=== PATIENT | female | born 1990 | race Hispanic/Latino ===

== ENCOUNTER 2016-09-07 20:47 | Emergency (ER) | payer MEDICAID ==
[2016-09-07 21:28] VITALS: O2SAT 98
[2016-09-07] MEDS ORDERED: Oxycodone/Acetaminophen 5/325 mg Tab PO STA (22:07)
--- NOTE | 2016-09-07 22:16 | C.PDOC ---
History Of Present Illness 26 year old patient presents to the ED complaining of dental pain that began today. Patient took pain medications which gave her no relief. Patient has a history of a root canal in this area. Patient reports "the air makes it worse." Patient has a migraine secondary to the dental pain. She usually takes Imitrex, but ran out of it. Patient denies fever, vomiting, or neck pain. Time Seen by Provider: 09/07/16 21:41 Chief Complaint (Nursing): Dental Pain History Per: Patient History/Exam Limitations: no limitations Onset/Duration Of Symptoms: Hrs (today) Current Symptoms Are (Timing): Still Present Severity: Mild Pain Scale Rating Of: 3 Quality: Positive for: "Pain" Recent travel outside of the [place]: No Past Medical History Reviewed: Historical Data, Nursing Documentation, Vital Signs Vital Signs: Last Vital Signs Temp 97.8 F 09/07/16 22:55 Pulse 80 09/07/16 22:55 Resp 18 09/07/16 22:55 BP 128/82 09/07/16 22:55 Pulse Ox 98 09/07/16 22:55 - Medical History PMH: Asthma, Back Problems Family History: States: Unknown Family Hx - Social History Hx Tobacco Use: Yes Hx Alcohol Use: Yes Hx Substance Use: No - Immunization History Hx Tetanus Toxoid Vaccination: No Hx Influenza Vaccination: No Hx Pneumococcal Vaccination: No Review Of Systems Except As Marked, All Systems Reviewed And Found Negative. Constitutional: Positive for: Other (dental pain). Negative for: Fever Gastrointestinal: Negative for: Vomiting Musculoskeletal: Negative for: Neck Pain Physical Exam - Physical Exam Appears: Non-toxic, No Acute Distress Skin: Warm, Dry Head: Atraumatic, Normacephalic Eye(s): bilateral: Normal Inspection, EOMI, Abnormal Pupil Ear(s): Bilateral: Normal Nose: Normal Oral Mucosa: Moist Tongue: Normal Appearing Lips: Normal Appearing Teeth: Other (tenderness to right mandibular molar) Gingiva: Normal Appearing Throat: Normal, No Erythema, No Exudate Neck: Normal ROM, Supple Chest: Symmetrical Cardiovascular: Rhythm Regular Respiratory: No Accessory Muscle Use Back: Normal Inspection Extremity: Normal ROM Neurological/Psych: Oriented x3, Normal Speech, Normal Cognition Gait: Steady ED Course And Treatment O2 Sat by Pulse Oximetry: 98 (RA) Pulse Ox Interpretation: Normal Progress Note: Plan: -Amoxicillin, Imitrex, Lidocaine 2%, Percocet. Patient is discharged and instructed to follow up with dentist in 1-2 days or returns if symptoms worsen. Disposition - Disposition Referrals: [facility] [Outside] Disposition: HOME/ ROUTINE Disposition Time: 22:13 Additional Instructions: Follow up with your dentist in 2-5 days for further evaluation. Take medications as prescribed. Return to the emergency department at any time if symptoms persist or worsen. Prescriptions: Amoxicillin 875 mg PO BID #14 tablet SUMAtriptan [Imitrex] 1 tab PO Q4 #12 tab oxyCODONE/Acetaminophen [Percocet 5/325 mg Tab] 1 tab PO QID PRN #14 tab PRN Reason: Pain Instructions: Toothache (ED) Forms: Accompanied To ED By:, Work Excuse - Clinical Impression Clinical Impression: Pain, dental, Headache - PA / HAIR CUTTER / Resident Statement MD/DO has reviewed & agrees with the documentation as recorded. - Scribe Statement The provider has reviewed the documentation as recorded by the Scribe Patience Walter All medical record entries made by the Scribe were at my direction and personally dictated by me. I have reviewed the chart and agree that the record accurately reflects my personal performance of the history, physical exam, medical decision making, and the department course for this patient. I have also personally directed, reviewed, and agree with the discharge instructions and disposition.
[2016-09-07] MEDS ORDERED: Oxycodone/Acetaminophen 5/325 mg Tab ONE (22:24)
[2016-09-07 22:56] VITALS: BP 128/82; PULSE 80; RESP 18; TEMP 97.8
== END 2016-09-07 22:55 | disposition home or self-care (01) ==
LOC: C.ER 20:47
DX: K08.89 Other specified disorders of teeth and supporting structures (principal); R51 Headache

== ENCOUNTER 2016-11-16 21:12 | Inpatient (IN) | payer MEDICAID ==
--- NOTE | 2016-11-16 21:55 | C.PDOC ---
History Of Present Illness Pt is here requesting detox from Heroin. Time Seen by Provider: 11/16/16 21:33 Chief Complaint (Nursing): Substance Abuse History Per: Patient Onset/Duration Of Symptoms: Days Current Symptoms Are (Timing): Still Present Suicide/Self Injury Attempted (Context): None Modifying Factor(s): Narcotics Severity: Moderate Associated Symptoms: denies: Suicidal Thoughts, Suicidal Plan Additional History Per: Prior Records Past Medical History Reviewed: Historical Data, Nursing Documentation, Vital Signs Vital Signs: Last Vital Signs Temp 98.0 F 11/16/16 21:17 Pulse 91 H 11/16/16 21:17 Resp 20 11/16/16 21:17 BP 126/86 11/16/16 21:17 Pulse Ox 98 11/16/16 21:55 - Medical History PMH: Asthma, Back Problems Family History: States: Unknown Family Hx - Social History Hx Tobacco Use: Yes Hx Alcohol Use: No Hx Substance Use: Yes (Snorts Heroin) - Immunization History Hx Tetanus Toxoid Vaccination: Yes Hx Influenza Vaccination: No Hx Pneumococcal Vaccination: No Review Of Systems Except As Marked, All Systems Reviewed And Found Negative. Constitutional: Negative for: Fever Cardiovascular: Negative for: Chest Pain Respiratory: Negative for: Shortness of Breath Genitourinary: Negative for: Dysuria Musculoskeletal: Negative for: Neck Pain Skin: Negative for: Rash Neurological: Negative for: Weakness, Numbness, Seizures, Altered Mental Status Physical Exam - Physical Exam Appears: Non-toxic, No Acute Distress Skin: Normal Color, Warm, Dry, No Rash Head: Atraumatic, Normacephalic Eye(s): bilateral: PERRL, EOMI Neck: Normal ROM, Supple Cardiovascular: Rhythm Regular Respiratory: Normal Breath Sounds, No Accessory Muscle Use Gastrointestinal/Abdominal: Soft, No Tenderness Back: No CVA Tenderness Extremity: Normal ROM, No Deformity Neurological/Psych: Oriented x3, Normal Motor, Normal Sensation ED Course And Treatment - Laboratory Results Result Diagrams: 11/16/16 22:08 11/16/16 22:08 Lab Interpretation: No Acute Changes Urine POC: Negative O2 Sat by Pulse Oximetry: 98 Pulse Ox Interpretation: Normal Progress Note: Pt is medically stable for detox admission. Disposition Counseled Patient/Family Regarding: Studies Performed, Diagnosis - Disposition Disposition: HOSPITALIZED Disposition Time: 00:55 Condition: STABLE - Clinical Impression Clinical Impression: Opioid use disorder, severe, dependence Decision To Admit - Pt Status Changed To: Hospital Disposition Of: Inpatient - Admit Certification Admit to Inpatient:: After my assessment, the patient will require hospitalization for at least two midnights. This is because of the severity of symptoms shown, intensity of services needed, and/or the medical risk in this patient being treated as an outpatient. - InPatient: Physician Admission Certification: I certify that this patient requires 2 or more midnights of care for the following reason:: Detox. - . Bed Request Type: Detox Admitting Physician: Femi Pedraza Patient Diagnosis: Opioid use disorder, severe, dependence
[2016-11-16 22:12] LABS: BASO % 0.3 % (0.0-2.0); EOS # 0.2 K/uL (0.0-0.7); EOS % 1.9 % (0.0-4.0); HEMATOCRIT 41.2 % (34.0-47.0); LYMPH # 2.3 K/uL (1.0-4.3); LYMPH % 28.5 % (20.0-40.0); MEAN CORPUSCULAR HEMOGLOBIN 28.4 pg (27.0-31.0); MEAN CORPUSCULAR HGB CONC 33.5 g/dL (33.0-37.0); MEAN PLATELET VOLUME 8.2 fL (7.2-11.7); MONO # 0.6 K/uL (0.0-0.8); MONO % 7.7 % (0.0-10.0); NRBC % 0.1 % (0.0-2.0); RED CELL DISTRIBUTION WIDTH 13.1 % (11.5-14.5)
[2016-11-16 22:21] LABS: CHLORIDE 99 mmol/L (98-107); POTASSIUM 3.9 mmol/L (3.6-5.2); RBC URINE 3 /hpf (0-3); SODIUM 138 mmol/L (132-148); URINE BACTERIA OCC (<OCC); URINE BILIRUBIN NEGATIVE (NEGATIVE); URINE BLOOD NEGATIVE (NEGATIVE); URINE COLOR Yellow (YELLOW); URINE GLUCOSE (UA) NORMAL (Normal); URINE KETONE NEGATIVE (NEGATIVE); URINE LEUKOCYTE ESTERASE 1+ Leu/uL (Negative); URINE PROTEIN NEGATIVE (NEGATIVE); URINE UROBILINOGEN NORMAL mg/dL (0.2-1.0); WBC URINE 10 /hpf (0-5)
[2016-11-16 22:23] LABS: ALB/GLOB RATIO 1.4 (1.0-2.1); ALKALINE PHOSPHATASE 57 U/L (38-126); AST/SGOT 21 U/L (14-36); BILIRUBIN,TOTAL 0.5 mg/dL (0.2-1.3); BLOOD UREA NITROGEN 10 mg/dL (7-17); CARBON DIOXIDE 29 mmol/L (22-30); GFR AFRICAN-AMERICAN > 60; TOTAL PROTEIN 7.1 g/dL (6.3-8.3)
[2016-11-16 22:24] LABS: ALCOHOL SERUM < 10 mg/dl (0-10); ALT/SGPT 21 U/L (9-52); CALCIUM 8.6 mg/dl (8.6-10.4); GLUCOSE,RANDOM 99 mg/dL (65-105)
[2016-11-17] MEDS ORDERED: Aluminum Hydroxide/Magnesium Hydroxide Susp (30 mL) PO PRN (10:33)
[2016-11-17 12:33] LABS: RBC URINE 1 /hpf (0-3); URINE BILIRUBIN NEGATIVE (NEGATIVE); URINE BLOOD NEGATIVE (NEGATIVE); URINE COLOR Straw (YELLOW); URINE GLUCOSE (UA) NORMAL (Normal); URINE KETONE NEGATIVE (NEGATIVE); URINE LEUKOCYTE ESTERASE NEG Leu/uL (Negative); URINE PROTEIN NEGATIVE (NEGATIVE); URINE UROBILINOGEN NORMAL mg/dL (0.2-1.0); WBC URINE < 1 /hpf (0-5)
--- NOTE | 2016-11-17 15:02 | PCM.PSYCH ---
Initial Psychiatric Evaluation - Initial Psychiatric Evaluation Type of Admission: Voluntary Legal Status: Capacity Chief Complaint (in patient's own words): "I don't feel good." History of Present Illness and Precipitating Events: The patient is a 26yo female who lives in [place] and works at [employer]. She is and has a 6 yo son. She states that shes been snorting 10-25 bags of heroin for the past year. She states that she last used heroin the night before she came here. She says that her longest sobriety was 2 days long but relapsed because she wanted to get high. She says she has been to detox before in [facility] for 2 days but left because she didnt like the facility or her care there. She denies alcohol use but smokes 10 cigarettes a day since she was 13yo. She says that her plan is to stay clean and go back to work. She denies any legal issues. She states that she slept the night but is cold and cant stay still. She complains of feeling jittery because she wants to use and is experiencing anxiety, nausea, vomiting, and body aches. She denies H/I, S/I, or hallucinations. Past medical history: denies Past psych history: denies Family psych history: denies Family substance abuse: denies Current Medications: Active Medications Generic Name Dose Route Start Last Admin Trade Name Freq PRN Reason Stop Dose Admin Al Hydrox/Mg Hydrox/Simethicone 30 ml 11/17/16 10:33 Maalox 30 Ml PO TID PRN Indigestion / Heartburn Clonidine HCl 0.1 mg 11/17/16 03:23 11/17/16 08:05 Catapres PO 0.1 mg Q6 PRN Administration Opiate Withdrawal Hydroxyzine HCl 50 mg 11/17/16 10:38 Atarax PO Q6H PRN Anxiety Ibuprofen 600 mg 11/17/16 10:37 Motrin Tab PO Q6H PRN Pain, moderate (4-7) Loperamide HCl 2 mg 11/17/16 10:33 Imodium PO Q8 PRN Diarrhea Methadone HCl 15 mg 11/18/16 10:00 Methadone PO 11/21/16 09:59 Q24H ROC Taper Ondansetron HCl 4 mg 11/17/16 10:33 Zofran Tab PO Q8 PRN Nausea/Vomiting Trazodone HCl 100 mg 11/17/16 22:00 Desyrel PO HS PRN Insomnia Past Psychiatric History - Past Psychiatric History Previous Treatment History: None Pertinent Medical Hx (Current Medical&Sleep Prob, Allergies): Allergies Allergy/AdvReac Type Severity Reaction Status Date / Time apple Allergy Severe RASH Verified 11/16/16 21:19 peanut Allergy RASH Verified 11/16/16 21:19 pear Allergy RASH Verified 11/16/16 21:19 walnut Allergy RASH Verified 11/16/16 21:19 ibuprofen AdvReac DIARRHEA Verified 11/16/16 21:19 cherries Allergy RASH Uncoded 05/17/16 20:39 strawberries Allergy RASH Uncoded 05/17/16 20:39 No Known Home Med 11/16/16 Review of Systems - Psychiatric Psychiatric: Abnormal Sleep Pattern, Anxiety. absent: Hallucinations, Homicidal Ideation, Suicidal Ideation Mental Status Examination - Personal Presentation Personal Presentation: Looks stated age - Affect Affect: Constricted - Motor Activity Motor Activity: Calm - Reliability in Providing Information Reliability in Providing Information: Fair - Speech Speech: Organized - Mood Mood: Depressed - Formal Thought Process Formal Thought Process: No Impairment - Obsessions/Compulsions Obsessions: No Compulsions: No - Cognitive Functions Orientation: Person, Place, Situation, Time Sensorium: Drowsy Attention/Concentration: Easily distracted Estimate of Intelligence: Average Judgement: Intact, as evidence by: Insight regarding need for hospitalization Memory: Recent intact, as evidence by: Ability to recall events of the day, Remote intact, as evidenced by: Abilit to recall sig. life events - Risk Risk: Withdrawal, Diminished functioning - Strength & Assets Inventory Strength & Assets Inventory: Employment history, Cooperative - Limitations Limitations: Other DSM 5 DX - DSM 5 DSM 5 Diagnosis: Opioid Use Disorder-severe Opioid Withdrawal Cannabis use d/o - Recommended/Plan of Treatment Treatment Recommendations and Plan of Treatment: Opioid Use Disorder: Support and psychoeducation, Attend groups and activities daily [place] for abstinence CBT for relapse prevention Opioid Withdrawal Disorder: Methadone detox As needed meds Psychoed and support Tobacco Use Disorder: Nicotine patch [place] for abstinence Cannabis: [place] for abstinence 33 min Projected ELOS: 4 days Prognosis: good with treatment Discharge Plan and Discharge Criteria: No wdw sxs Refer to IOP - Smoking Cessation Smoking Cessation Initiated: Yes
--- NOTE | 2016-11-18 14:21 | PCM.PYCHPN ---
Psychiatric Progress Note - Psychiatric Progress Note Patient seen today, length of contact: 16min Patient Chief Complaint: "I feel weak and tired." Problems Identified/Issues Discussed: The pt is seen, chart reviewed, case discussed with staff. The patient states that she is feeling weak and tired and couldnt sleep last night due to her anxiety. She also states that she woke up "antsy" but the atarax she was given helped with her symptoms. She denies S/I, H/I, or hallucinations and states that she would like to go to an outpatient program so that she can still go to work. The pt is compliant with medications and reports no side-effects. Symptoms are improving but needs more time to stabilize. After care discussed, support and psychoeducation given. Medication Change: Yes Medical Record Reviewed: Yes Mental Status Examination - Cognitive Function Orientation: Person, Place, Situation, Time Memory: Intact Attention: WNL Concentration: WNL Association: WN Fund of Knowledge: WNL - Mood Mood: Depressed - Affect Affect: Constricted - Speech Speech: Soft - Formal Thought Process Formal Thought Process: No Impairment - Suicidal Ideation Suicidal Ideation: No - Homicidal Ideation Homicidal Ideation: No Goal/Treatment Plan - Goal/Treatment Plan Need for Continued Stay: Discharge may exacerbated symptoms, Severe functional impairment Progress Toward Problem(s) and Goals/Treatment Plan: Opioid Use Disorder: Support and psychoeducation, Attend groups and activities daily [place] for abstinence CBT for relapse prevention Opioid Withdrawal Disorder: Methadone detox As needed meds Psychoed and support Tobacco Use Disorder: Nicotine patch [place] for abstinence Cannabis: [place] for abstinence Estimated Date of D/C: 11/20/16
[2016-11-19 06:10] VITALS: RESP 18; TEMP 98.2
[2016-11-19 09:47] VITALS: BP 114/83; PULSE 100; O2SAT 98
--- NOTE | 2016-11-19 10:00 | PCM.PYCHDC ---
Mental Status Examination - Mental Status Examination Orientation: Person, Place, Situation, Time Memory: Intact Mood: Depressed, Anxious Affect: Flat Speech: Soft Attention: WNL Concentration: WNL Association: WNL Fund of Knowledge: WNL Formal Thought Process: No Impairment Suicidal Ideation: No Current Homicidal Ideation?: No Discharge Summary - Discharge Note Reason for Hospitalization: Opioid Use Disorder Anxiety Disorder Consultations:: List each consultation separately and include: 1. Reason for request. 2. Findings. 3. Follow-up Summary of Hospital Course include:: 1. Description of specific treatment plan utilized for patients during their course of treatmen. 2. Summarize the time- course for resolution of acute symptoms and/or regressed behaviors. 3. Describe issues identified and worked on during hospitalization. 4. Describe medication utilized. 5. Describe medical problems identified and treated. 6. Reassessment of suicide risk Summary of Hospital Course: On admission: The patient is a 26yo female who lives in [place] and works at [employer]. She is and has a 6 yo son. She states that shes been snorting 10-25 bags of heroin for the past year. She states that she last used heroin the night before she came here. She says that her longest sobriety was 2 days long but relapsed because she wanted to get high. She says she has been to detox before in [facility] for 2 days but left because she didnt like the facility or her care there. She denies alcohol use but smokes 10 cigarettes a day since she was 13yo. She says that her plan is to stay clean and go back to work. She denies any legal issues. She states that she slept the night but is cold and cant stay still. She complains of feeling jittery because she wants to use and is experiencing anxiety, nausea, vomiting, and body aches. She denies H/I, S/I, or hallucinations. Past medical history: denies Past psych history: denies Family psych history: denies Family substance abuse: denies Hospital summary: The pt was admitted and started on treatment with psychotherapy, support, psychoeducation and medications. PA and CBT used. The pt attended some groups and activities, as well as milieu therapy. All the risks and benefits of medications are discussed and the patient understood and agreed. After care discussed with the patient. Patient was isolated, didn't socialize with other patients much. Patient requested to leave early despite counseling to complete detox. She is given 5 mg instead of 10 mg today and risks, incl. relapse, OD or , discussed. - Final Diagnosis (DSM 5) Condition upon Discharge: IMPROVED DSM 5: Opioid Use Disorder-severe Opioid Withdrawal Cannabis use d/o Disposition: HOME/ ROUTINE Follow-up Treatment Plan: Continue below medications after discharge. Follow after care plan as discussed at [facility] IOP Use relapse prevention skills Return to ER or call 911 if suicidal, homicidal or symptoms relapse. Stay away from stress, alcohol and drugs. See primary doctor once a year. Prescriptions/Medication Reconciliation: Gabapentin [Neurontin] 300 mg PO BID #60 cap QUEtiapine [Seroquel] 100 mg PO HS #30 tab - Smoking Cessation Smoking Cessation Medication prescribed: No - Antipsychotic Medications Pt discharged on 2 or more routine antipsychotic medications: No
== END 2016-11-19 10:45 | disposition home or self-care (01) | DRG 745 ==
LOC: C.ER 21:12 → C.7D 11-17 00:55
PROC: HZ2ZZZZ Detoxification Services for Substance Abuse Treatment (ICD-10-PCS; principal; 2016-11-17)
PROC: HZ32ZZZ Individual Counseling for Substance Abuse Treatment, Cognitive-Behavioral (ICD-10-PCS; 2016-11-17)
PROC: HZ46ZZZ Group Counseling for Substance Abuse Treatment, Psychoeducation (ICD-10-PCS; 2016-11-17)
PROC: HZ42ZZZ Group Counseling for Substance Abuse Treatment, Cognitive-Behavioral (ICD-10-PCS; 2016-11-17)
PROC: HZ36ZZZ Individual Counseling for Substance Abuse Treatment, Psychoeducation (ICD-10-PCS; 2016-11-17)
PROC: HZ59ZZZ Individual Psychotherapy for Substance Abuse Treatment, Supportive (ICD-10-PCS; 2016-11-17)
DX: F11.23 Opioid dependence with withdrawal (principal); F12.90 Cannabis use, unspecified, uncomplicated; F17.210 Nicotine dependence, cigarettes, uncomplicated; F41.9 Anxiety disorder, unspecified; J45.909 Unspecified asthma, uncomplicated; G47.00 Insomnia, unspecified

== ENCOUNTER 2017-03-26 09:50 | Emergency (ER) | payer SELFPAY ==
[2017-03-26 10:04] VITALS: RESP 17; TEMP 98.3
[2017-03-26] MEDS ORDERED: Sodium Chloride 0.9% 1,000 ML IV ONE (10:34)
[2017-03-26] MEDS ORDERED: Sodium Chloride 0.9% 1,000 ML ONE (10:49)
--- NOTE | 2017-03-26 11:03 | C.PDOC ---
History Of Present Illness 27 y/o female, with PMHx of heroin and cocaine abuse, presents to ED for evaluation of chills, bodyaches, and tremors. Patient reports using heroin and cocaine intranasally, last use was 10 days ago. Pt denies vomiting, or any other physical complaints at this time. Time Seen by Provider: 03/26/17 10:15 Chief Complaint (Nursing): Substance Abuse History Per: Patient History/Exam Limitations: no limitations Onset/Duration Of Symptoms: Days, Gradual Current Symptoms Are (Timing): Still Present Suicide/Self Injury Attempted (Context): None Modifying Factor(s): Cocaine Associated Symptoms: denies: Suicidal Thoughts, Suicidal Plan Involuntary Hold By: None Recent travel outside of the [place]: No Additional History Per: Patient Past Medical History Reviewed: Historical Data, Nursing Documentation, Vital Signs Vital Signs: Last Vital Signs Temp 98.3 F 03/26/17 10:00 Pulse 94 H 03/26/17 10:00 Resp 17 03/26/17 10:00 BP 93/85 L 03/26/17 10:00 Pulse Ox 100 03/26/17 12:35 - Medical History PMH: Asthma, Back Problems, Depression - [facility] Procedures DETOXIFICATION SERVICES FOR SUBSTANCE ABUSE TREATMENT (11/17/16) GROUP GUEST HISTORY CLERK FOR SUBSTANCE ABUSE TREATMENT, PSYCHOEDUCATION (11/17/16) GROUP GUEST HISTORY CLERK FOR SUBSTANCE ABUSE, COGNITIVE BEHAVIORAL (11/17/16) INDIV GUEST HISTORY CLERK FOR SUBSTANCE ABUSE TREATMENT, PSYCHOEDUCATION (11/17/16) INDIV GUEST HISTORY CLERK FOR SUBSTANCE ABUSE, COGNITIVE BEHAVIORAL (11/17/16) INDIV PSYCHOTHERAPY FOR SUBSTANCE ABUSE TREATMENT, SUPPORT (11/17/16) Family History: States: Unknown Family Hx - Social History Hx Tobacco Use: Yes Hx Alcohol Use: No Hx Substance Use: Yes (10 days ago) - Immunization History Hx Tetanus Toxoid Vaccination: Yes Hx Influenza Vaccination: No Hx Pneumococcal Vaccination: No Review Of Systems Except As Marked, All Systems Reviewed And Found Negative. Constitutional: Positive for: Chills, Other (bodyaches, tremors) Cardiovascular: Negative for: Chest Pain, Palpitations Respiratory: Negative for: Cough, Shortness of Breath Gastrointestinal: Negative for: Nausea, Vomiting, Abdominal Pain Neurological: Negative for: Headache, Dizziness Psych: Positive for: Withdrawal. Negative for: Suicidal ideation Physical Exam - Physical Exam Appears: Non-toxic, No Acute Distress Skin: Normal Color, Warm, Dry Head: Atraumatic, Normacephalic Eye(s): bilateral: Normal Inspection Nose: Normal Oral Mucosa: Moist Neck: Normal ROM, Supple Chest: Symmetrical Cardiovascular: Rhythm Regular, No Murmur Respiratory: Normal Breath Sounds, No Rales, No Rhonchi, No Wheezing Gastrointestinal/Abdominal: Soft, No Tenderness Back: No CVA Tenderness Extremity: Normal ROM Neurological/Psych: Oriented x3, Normal Speech ED Course And Treatment - Laboratory Results Result Diagrams: 03/26/17 11:12 03/26/17 11:12 O2 Sat by Pulse Oximetry: 100 (on RA) Pulse Ox Interpretation: Normal Progress Note: Blood work, UA ordered and reviewed. Patient was given IV fluids , Zofran IVP, and Tylenol PO. Patient evaluated by crisis department, and does not require admission. Patient was referred to outpatient rehab facility. Disposition - Disposition Disposition: HOME/ ROUTINE Disposition Time: 12:18 Condition: STABLE Additional Instructions: follow up with rehab facility call to make an appointment return to ER if symptoms worsens or progress Instructions: Opioid Withdrawal (ED) Forms: General Discharge Instructions, [facility] (Mauritian) Print Language: COMORAN - Clinical Impression Clinical Impression: Drug abuse, Opioid use disorder, severe, dependence - Scribe Statement The provider has reviewed the documentation as recorded by the Scribbri Walter All medical record entries made by the Scribe were at my direction and personally dictated by me. I have reviewed the chart and agree that the record accurately reflects my personal performance of the history, physical exam, medical decision making, and the department course for this patient. I have also personally directed, reviewed, and agree with the discharge instructions and disposition.
[2017-03-26 11:15] LABS: EOS # 0.2 K/uL (0.0-0.7); EOS % 1.1 % (0.0-4.0); HEMATOCRIT 46.7 % (34.0-47.0); LYMPH # 2.8 K/uL (1.0-4.3); LYMPH % 21.3 % (20.0-40.0); MEAN CELL VOLUME 85.1 fL (81.0-99.0); MEAN CORPUSCULAR HEMOGLOBIN 28.8 pg (27.0-31.0); MEAN CORPUSCULAR HGB CONC 33.8 g/dL (33.0-37.0); MONO # 0.8 K/uL (0.0-0.8); MONO % 5.7 % (0.0-10.0); NRBC % 0.1 % (0.0-2.0); RED CELL DISTRIBUTION WIDTH 12.7 % (11.5-14.5)
[2017-03-26 11:19] LABS: WHITE BLOOD COUNT 13.3 K/uL (4.8-10.8)
[2017-03-26 11:22] LABS: CHLORIDE 100 mmol/L (98-107)
[2017-03-26 11:23] LABS: POTASSIUM 3.8 mmol/L (3.6-5.2); SODIUM 137 mmol/L (132-148)
[2017-03-26 11:26] LABS: ALB/GLOB RATIO 1.2 (1.0-2.1); ALKALINE PHOSPHATASE 58 U/L (38-126); ALT/SGPT 33 U/L (9-52); AST/SGOT 18 U/L (14-36); BILIRUBIN,TOTAL 0.6 mg/dL (0.2-1.3); BLOOD UREA NITROGEN 8 mg/dL (7-17); CARBON DIOXIDE 25 mmol/L (22-30); GFR AFRICAN-AMERICAN > 60; GLUCOSE,RANDOM 98 mg/dL (65-105); TOTAL PROTEIN 7.9 g/dL (6.3-8.3)
[2017-03-26 11:27] LABS: ALCOHOL SERUM < 10 mg/dl (0-10)
[2017-03-26 11:28] LABS: RBC URINE 8 /hpf (0-3); URINE BACTERIA RARE (<OCC); URINE BILIRUBIN NEGATIVE (NEGATIVE); URINE BLOOD NEGATIVE (NEGATIVE); URINE COLOR Yellow (YELLOW); URINE GLUCOSE (UA) NORMAL (Normal); URINE KETONE NEGATIVE (NEGATIVE); URINE LEUKOCYTE ESTERASE 3+ Leu/uL (Negative); URINE PROTEIN NEGATIVE (NEGATIVE); URINE UROBILINOGEN NORMAL mg/dL (0.2-1.0); WBC URINE 28 /hpf (0-5)
[2017-03-26 12:47] VITALS: BP 100/68; PULSE 110; O2SAT 99
== END 2017-03-26 12:43 | disposition home or self-care (01) ==
LOC: C.ER 09:50
DX: F19.10 Other psychoactive substance abuse, uncomplicated (principal); F11.20 Opioid dependence, uncomplicated
CPT/HCPCS: 80053; 81001; 84703; 85025; 96361; 96374; 99284; G0480; J2405; J7040

== ENCOUNTER 2017-06-06 09:13 | Emergency (ER) | payer SELFPAY ==
[2017-06-06 09:17] VITALS: RESP 18; TEMP 99.3
--- NOTE | 2017-06-06 09:33 | C.PDOC ---
History Of Present Illness 27 y/o female, with PMHx of heroin and cocaine abuse, presents to ED for evaluation of non-bloody/non-bilious vomiting and diarrhea. Pt reports no drug use today and "only a little" yesterday and believes the symptoms area from withdrawal. Denies fevers, chest pain, sob, or symptoms. Time Seen by Provider: 06/06/17 09:15 Chief Complaint (Nursing): Substance Abuse History Per: Patient History/Exam Limitations: no limitations Onset/Duration Of Symptoms: Days Current Symptoms Are (Timing): Still Present Past Medical History Reviewed: Historical Data, Nursing Documentation, Vital Signs Vital Signs: Last Vital Signs Temp 99.3 F 06/06/17 09:16 Pulse 96 H 06/06/17 11:32 Resp 18 06/06/17 11:32 BP 102/70 06/06/17 11:32 Pulse Ox 99 06/06/17 12:57 - Medical History PMH: Asthma, Back Problems, Depression Denies: Diabetes, Hepatitis, HIV, HTN, Seizures, Sexually Transmitted Disease - [facility] Procedures DETOXIFICATION SERVICES FOR SUBSTANCE ABUSE TREATMENT (11/17/16) GROUP ROPE CUTTER FOR SUBSTANCE ABUSE TREATMENT, PSYCHOEDUCATION (11/17/16) GROUP ROPE CUTTER FOR SUBSTANCE ABUSE, COGNITIVE BEHAVIORAL (11/17/16) INDIV ROPE CUTTER FOR SUBSTANCE ABUSE TREATMENT, PSYCHOEDUCATION (11/17/16) INDIV ROPE CUTTER FOR SUBSTANCE ABUSE, COGNITIVE BEHAVIORAL (11/17/16) INDIV PSYCHOTHERAPY FOR SUBSTANCE ABUSE TREATMENT, SUPPORT (11/17/16) Family History: States: No Known Family Hx - Social History Hx Tobacco Use: Yes Hx Alcohol Use: No Hx Substance Use: Yes (LAST USED YESTERDAY) - Immunization History Hx Tetanus Toxoid Vaccination: Yes Hx Influenza Vaccination: No Hx Pneumococcal Vaccination: No Review Of Systems Except As Marked, All Systems Reviewed And Found Negative. Constitutional: Negative for: Fever Cardiovascular: Negative for: Chest Pain Respiratory: Negative for: Shortness of Breath Gastrointestinal: Positive for: Vomiting, Diarrhea Psych: Negative for: Suicidal ideation Physical Exam - Physical Exam Appears: Non-toxic, No Acute Distress Skin: Warm, Dry, No Rash Head: Atraumatic, Normacephalic Eye(s): bilateral: Normal Inspection, EOMI Nose: Normal Oral Mucosa: Moist Lips: Normal Appearing Neck: Normal ROM Chest: Symmetrical Cardiovascular: Rhythm Regular, No Murmur Respiratory: Normal Breath Sounds, No Accessory Muscle Use Gastrointestinal/Abdominal: Soft, No Tenderness Back: No CVA Tenderness, No Vertebral Tenderness Extremity: Normal ROM Neurological/Psych: Oriented x3, Normal Speech ED Course And Treatment - Laboratory Results Result Diagrams: 06/06/17 10:13 06/06/17 10:13 O2 Sat by Pulse Oximetry: 99 (on RA) Pulse Ox Interpretation: Normal Progress Note: Bloodwork, UA/UCG ordered and reviewed. Patient treated with Pepcid, IVFs and Zofran. On re-evaluation, pt is notes she feels better. Toelrating PO. Discussed with pt , no avaialbe detox beds. Father at bedside notes he is going to taje her to another facility after discharge. No urine given, they requests discharge. Disposition - Disposition Disposition: HOME/ ROUTINE Disposition Time: 13:04 Condition: STABLE Additional Instructions: Follow up with outpt referrals. Call [phone] for bed availability. Instructions: Opioid Withdrawal (ED) Forms: [facility] (Armenian) - Clinical Impression Clinical Impression: Drug abuse - Scribe Statement The provider has reviewed the documentation as recorded by the Scribe (Brianna Contreras) All medical record entries made by the Scribe were at my direction and personally dictated by me. I have reviewed the chart and agree that the record accurately reflects my personal performance of the history, physical exam, medical decision making, and the department course for this patient. I have also personally directed, reviewed, and agree with the discharge instructions and disposition.
[2017-06-06] MEDS ORDERED: Sodium Chloride 0.9% 1,000 ML IV ONE (09:58)
[2017-06-06] MEDS ORDERED: Sodium Chloride 0.9% 1,000 ML ONE (10:15)
[2017-06-06 10:17] LABS: BASO % 0.4 % (0.0-2.0); EOS % 0.1 % (0.0-4.0); HEMATOCRIT 45.3 % (34.0-47.0); LYMPH # 0.8 K/uL (1.0-4.3); LYMPH % 7.1 % (20.0-40.0); MEAN CELL VOLUME 84.7 fL (81.0-99.0); MEAN CORPUSCULAR HEMOGLOBIN 28.9 pg (27.0-31.0); MEAN CORPUSCULAR HGB CONC 34.1 g/dL (33.0-37.0); MEAN PLATELET VOLUME 7.7 fL (7.2-11.7); MONO # 0.2 K/uL (0.0-0.8); MONO % 2.3 % (0.0-10.0); PLATELET COUNT 264 K/uL (130-400); RED CELL DISTRIBUTION WIDTH 13.6 % (11.5-14.5); WHITE BLOOD COUNT 10.9 K/uL (4.8-10.8)
[2017-06-06 10:28] LABS: ALB/GLOB RATIO 1.3 (1.0-2.1); ALKALINE PHOSPHATASE 65 U/L (38-126); ALT/SGPT 45 U/L (9-52); AST/SGOT 21 U/L (14-36); BILIRUBIN,TOTAL 1.1 mg/dL (0.2-1.3); BLOOD UREA NITROGEN 15 mg/dL (7-17); CALCIUM 8.6 mg/dl (8.6-10.4); CARBON DIOXIDE 25 mmol/L (22-30); CHLORIDE 101 mmol/L (98-107); GFR AFRICAN-AMERICAN > 60; GLUCOSE,RANDOM 108 mg/dL (65-105); POTASSIUM 3.5 mmol/L (3.6-5.2); SODIUM 140 mmol/L (132-148); TOTAL PROTEIN 7.9 g/dL (6.3-8.3)
[2017-06-06 10:40] LABS: NEUTROPHIL 87 % (50-75); TOTAL CELLS COUNTED 100
[2017-06-06 12:14] VITALS: O2SAT 99
[2017-06-06 13:09] VITALS: BP 116/79; PULSE 98
== END 2017-06-06 13:08 | disposition home or self-care (01) ==
LOC: C.ER 09:13
DX: F19.10 Other psychoactive substance abuse, uncomplicated (principal)
CPT/HCPCS: 80053; 83690; 85025; 96361; 96374; 96375; 99284; J2405; J7040

== ENCOUNTER 2017-11-01 18:31 | Emergency (ER) | payer MEDICAID, OTHER ==
[2017-11-01 18:35] VITALS: BMI 25.2
[2017-11-01 18:37] VITALS: BP 116/79; PULSE 72; RESP 16; TEMP 98.3; O2SAT 100
== END 2017-11-01 18:53 | disposition left against medical advice (07) ==
LOC: C.ER 18:31
DX: Z02.89 Encounter for other administrative examinations (principal); H57.8 Other specified disorders of eye and adnexa